=== PATIENT | female | born 1965 | race Caucasian/White ===

== ENCOUNTER 2016-06-21 07:59 | Day surgery (SDC) | payer BC ==
[~2016-06-21] VITALS: Ht 165.1 cm; Wt 72.6 kg
[~2016-06-21 07:59] MED LIST: ANASTROZOLE1 MG PO; CALCIUM 600 MG1 EACH PO; COMPAZINE10 MG PO; DECADRON4 MG PO; EXCEDRIN MIGRA1 EAC3 PO; TYLENOL EXTRA500 MG PO; ZANTAC150 MG PO
[2016-06-21] MEDS ORDERED: EXCEDRIN MIGRA1 EAC3 PO (08:23)
[2016-06-21 08:24] VITALS: BP 108/67
[2016-06-21] MEDS ORDERED: NORCO 5/3251 TABLET PO (14:11)
[2016-06-21 14:44] VITALS: BP 135/80
[2016-06-21 15:45] VITALS: BP 118/75
== END 2016-06-21 15:59 | disposition home or self-care (01) ==
LOC: SDC 07:59
PROC: 0JBF0ZZ Excision of Left Upper Arm Subcutaneous Tissue and Fascia, Open Approach (ICD-10-PCS; principal; 2016-06-21)
DX: D17.9 Benign lipomatous neoplasm, unspecified (principal); Z85.3 Personal history of malignant neoplasm of breast
CPT/HCPCS: 88304; J0330; J0690; J1885; J2250; J2405; J2765; J3010; S0020